=== PATIENT | female | born 1985 | race Caucasian/White ===

== ENCOUNTER 2017-06-10 22:36 | Emergency (ER) | payer OTHER ==
[2017-06-11 00:35] VITALS: BP 113/74
== END 2017-06-11 00:35 | disposition home or self-care (01) ==
LOC: ED 22:36
DX: J18.9 Pneumonia, unspecified organism (principal); S39.012A Strain of muscle, fascia and tendon of lower back, initial encounter; N39.0 Urinary tract infection, site not specified; X58.XXXA Exposure to other specified factors, initial encounter; Y93.89 Activity, other specified; Y92.89 Other specified places as the place of occurrence of the external cause; Y99.8 Other external cause status
CPT/HCPCS: J0696; J1885; J7512; J7613

== ENCOUNTER 2017-07-01 18:28 | Emergency (ER) | payer OTHER ==
[~2017-07-01] VITALS: Ht 165.1 cm; Wt 59.6 kg
[2017-07-01 19:59] VITALS: BP 97/55
== END 2017-07-01 22:16 | disposition home or self-care (01) ==
LOC: ED 18:28
DX: N12 Tubulo-interstitial nephritis, not specified as acute or chronic (principal)
CPT/HCPCS: J0696